=== PATIENT | female | born 2005 | race Two or more races ===

== ENCOUNTER → 2025-03-26 | Outpatient (CLI) | payer OTHER ==
[2025-03-26 15:42] LABS: PLATELET COUNT, AUTOMATED 306 10^3/uL (150-450)
[2025-03-26 16:02] LABS: HIV 1&2 SCREEN NEGATIVE (NEGATIVE)
[2025-03-26 16:11] LABS: HEPATITIS C VIRUS ABY INDEX 0.04 INDEX (<0.8)
[2025-03-26 17:31] LABS: Trichomonas vaginalis (AMP) NOT DETECTED (NEGATIVE)
[2025-03-26 17:55] LABS: GC DNA AMPLIFICATION NEGATIVE (NEGATIVE)
== END ==
LOC: M PLALAB 12:59
PROVIDERS: ATTEND Student in an Organized Health Care Education/Training Program
DX: Z34.80 Encounter for supervision of other normal pregnancy, unspecified trimester (principal)

== ENCOUNTER → 2025-04-03 | Outpatient (CLI) | payer OTHER | LOC: M PLALAB 15:55 | PROVIDERS: ATTEND Student in an Organized Health Care Education/Training Program | DX: Z34.80 Encounter for supervision of other normal pregnancy, unspecified trimester (principal) ==

== ENCOUNTER → 2025-05-29 | Outpatient (CLI) | payer OTHER | LOC: M WHC 13:38 | PROVIDERS: ATTEND Nurse Practitioner Family | DX: Z34.82 Encounter for supervision of other normal pregnancy, second trimester (principal); Z3A.19 19 weeks gestation of pregnancy ==